=== PATIENT | female | born 1985 | race Caucasian/White ===

== ENCOUNTER 2018-04-04 08:41 | Emergency (ER) | payer OTHER ==
[2018-04-04 08:51] VITALS: BP 96/70
--- NOTE | 2018-04-04 09:03 | EDPHY ---
H & P Stated Complaint: missed last step twisted l ankle Time Seen by Provider: 04/04/18 09:00 HPI/ROS: HPI: This is a 32-year-old female who presents with Chief Complaint: Missed last step, twisted left ankle Location: Left ankle Quality: Injury Duration: 30 min prior to arrival Signs and Symptoms: No bleeding, no radiation, no numbness, no weakness, no tingling, no incontinence, + decreased range of motion, + swelling, + pain, no fever Timing: Acute Severity: Moderate Context: Patient reports that she was walking down the stairs in her house when she accidentally missed the last step and everted her left ankle. She felt immediate, constant, nonradiating pain in the lateral portion of her ankle. She reports that pain is worsened with weight-bearing. She did not hear a pop or clicking sound. She has no prior history of ankle sprains. Denies radiation, weakness. She reports mild decreased range of motion. LMP 1- 2 weeks ago. Modifying Factors: None Comment: ROS: A comprehensive 10 system review of systems is otherwise negative aside from elements mentioned in the history of present illness. MEDICAL/SURGICAL/SOCIAL HISTORY: Medical history: Generally healthy. Takes oral control pills. Surgical history: Denies Social history: Never smoked. . CONSTITUTIONAL: Physically fit adult white female, awake and alert, no obvious distress HEENT: Atraumatic and normocephalic. NECK: supple EXTREMITIES: 2/2 pulses, strength 5/5, left Ankle: Moderate lateral malleolus swelling; Plantar flexion to 50, dorsiflexion to 20. Foot inversion to 35 degree. Moderate tenderness/swelling Anterior talofibular ligament. No tenderness/swelling Calcaneofibular ligament, no tenderness/swelling posterior talofibular ligament, no tenderness/swelling posterior inferior tibiofibular ligament. Achilles tendon intact. DIP/PIP/MCP flexion/extension intact with good light touch sensation. no deformities, no clubbing, no cyanosis or edema. NEUROLOGICAL: no focal neuro deficits. GCS 15. Light touch sensation intact. SKIN: Warm and dry, no erythema. no rash. Good capillary refill. Source: Patient Exam Limitations: No limitations - Personal History LMP (Females 10-55): 8-14 Days Ago Current Tetanus Diphtheria and Acellular Pertussis (TDAP): Yes - Medical/Surgical History Hx Asthma: No Hx Chronic Respiratory Disease: No Hx Diabetes: No Hx Cardiac Disease: No Hx Renal Disease: No Hx Cirrhosis: No Hx Alcoholism: No Hx HIV/AIDS: No Hx Splenectomy or Spleen Trauma: No Other PMH: denies - Social History Smoking Status: Never smoked Constitutional: Initial Vital Signs Temperature (C) 36.8 C 04/04/18 08:48 Heart Rate 73 04/04/18 08:48 Respiratory Rate 18 04/04/18 08:48 Blood Pressure 96/70 L 04/04/18 08:48 O2 Sat (%) 99 04/04/18 08:48 O2 Delivery Mode Room Air Allergies/Adverse Reactions: No Known Allergies Allergy (Unverified 04/04/18 08:47) Home Medications: Medication Instructions Recorded Microgestin 21 1.5-30 Tab 04/04/18 Propranolol HCl 04/04/18 oxyCODONE/APAP 5/325 [Percocet 1 - 2 tab PO Q4H PRN #10 tab 04/04/18 5/325 (*)] Medical Decision Making - Diagnostics Imaging Results: Imaging Impressions Ankle X-Ray 04/04/18 09:00 Impression: Lateral ankle sprain. Procedures: Procedure: Splint placement. A left posterior short-leg splint was applied by the Emergency Room physical therapy technician. After application of the splint I returned and re-examined the patient. The splint was adequately immobilizing the joint and distal to the splint the patient's circulation and sensation was intact. ED Course/Re-evaluation: Vital signs reviewed and stable upon arrival. Ice pack applied and left ankle x-ray ordered. Left ankle x-ray my read shows stress fracture or possible distal fibula fracture minimally displaced. Radiology read ankle sprain. Patient will be Placed in posterior short-leg splint, crutches provided, ortho follow-up for repeat x-ray imaging No signs of neurovascular compromise/tenting of skin/compartment syndrome/ extremities and joints examined above and below area of concern and are neurovascularly intact. This patient was seen under the supervision of my secondary supervising physician. I evaluated care for this patient independently. Discussed this patient with Dr. Lowry. Differential Diagnosis: Ankle injury differential diagnosis includes but is not limited to tibia fracture, fibula fracture, metatarsal fracture, LisFranc fracture, achilles tendon rupture, sprain. Departure - Departure Disposition: Home, Routine, Self-Care Clinical Impression: Suspected fracture of bone Fracture of distal end of left fibula Qualifiers: Encounter type: initial encounter Fracture type: closed Fracture morphology: unspecified fracture morphology Qualified Code(s): S82.832A - Other fracture of upper and lower end of left fibula, initial encounter for closed fracture Condition: Good Instructions: Ankle Fracture (ED), Crutch Instructions (ED), ORIF of an Ankle Fracture (DC), Splint Care (ED) Additional Instructions: Keep the splint dry and in place until seen by Orthopedics. Use crutches to aid ambulation. Start with toe-touch weight-bearing status. Take Tylenol 650 mg every 4 hours and/or Ibuprofen 600 mg every 8 hours with food as needed for pain. Use Percocet every 6 hours as needed for severe/break through pain. Do not use Tylenol and Percocet concomitantly. Apply ice for 30 minutes at a time; 2-3 times per day for the next 1-2 days. Follow up with Orthopedics in 5-7 days at which time they will evaluate and recommend with you if conservative management versus surgery is indicated. Return to the ER immediately if you experience new or worsening pain, discoloration, numbness, tingling, or any other symptoms that concern you. Referrals: Laura Núñez MD [Medical Doctor] - As per Instructions Prescriptions: oxyCODONE/APAP 5/325 [Percocet 5/325 (*)] 1 - 2 tab PO Q4H PRN #10 tab PRN Reason: Pain, Severe
== END 2018-04-04 09:45 | disposition home or self-care (01) ==
PROC: 2W3RX1Z Immobilization of Left Lower Leg using Splint (ICD-10-PCS; principal; 2018-04-04)
DX: S82.832A Other fracture of upper and lower end of left fibula, initial encounter for closed fracture (principal); W18.43XA Slipping, tripping and stumbling without falling due to stepping from one level to another, initial encounter